=== PATIENT | female | born 1990 | race Caucasian/White ===

== ENCOUNTER 2018-06-20 04:48 | Inpatient (IN) | payer MEDICAID ==
[~2018-06-20] VITALS: Ht 152.4 cm; Wt 82.1 kg
[2018-06-20 05:15] VITALS: BP_SYST 134
[2018-06-20] MEDS ORDERED: VANCOMYCIN HCL 1,000 MG in D5W 250 ML IV ONE (05:30)
[2018-06-20] MEDS ORDERED: NACL 0.9% IV ONE (05:30)
[2018-06-20] MEDS ORDERED: AMOX-426 PO (05:40)
[2018-06-20] MEDS ORDERED: CLIN150C15 PO (05:40)
[2018-06-20 06:07] LABS: BILIRUBIN,URINE NEGATIVE (NEGATIVE); BLOOD, URINE NEGATIVE (NEGATIVE); CLARITY/URINE SL HAZY (CLEAR); COLOR,URINE YELLOW (YELLOW); GLUCOSE,URINE NEGATIVE (NEGATIVE); KETONES,URINE NEGATIVE (NEGATIVE); LEUKOCYTE ESTERASE ,URINE NEGATIVE (NEGATIVE); NITRITE, URINE NEGATIVE (NEGATIVE); PROTEIN URINE NEGATIVE (NEGATIVE); UROBILINOGEN,URINE 0.2 (0.2-1.0)
[2018-06-20] MEDS ORDERED: VANCOMYCIN HCL 1000 MG/VIAL IV ONE (06:20)
[2018-06-20 06:25] LABS: BASOPHILS # (AUTO) 0.1 K/uL (0.0-0.2); BASOPHILS % (AUTO) 0.5 % (0.0-2.0); EOSINOPHILS # (AUTO) 0.1 K/uL (0.0-0.4); EOSINOPHILS % (AUTO) 0.8 % (0.0-4.0); HEMATOCRIT 37.4 % (36-48); HEMOGLOBIN 11.6 g/dL (12.0-16.0); LYMPHOCYTES # (AUTO) 1.2 K/uL (1.0-5.5); MEAN CORPUSCULAR HEMOGLOBIN 25 pg (27-31); MEAN CORPUSCULAR HGB CONC 31 % (32-36); MEAN CORPUSCULAR VOLUME 81 fL (79.0-98.0); MONOCYTES # (AUTO) 0.8 K/uL (0.0-1.0); NEUTROPHILS # (AUTO) 8.1 K/uL (1.8-7.7); NEUTROPHILS % (AUTO) 78.7 % (40.0-70.0); PLATELET COUNT (AUTO) 386 K/uL (130-430); RED BLOOD CELL COUNT(AUTO) 4.63 MIL/uL (4.2-6.2); RED CELL DISTRIBUTION WIDTH 14.1 % (9.0-15.0); WHITE BLOOD COUNT (AUTO) 10.3 K/uL (4.8-10.8)
[2018-06-20 06:32] LABS: CALCIUM 9.3 mg/dL (8.4-11.0); CREATININE 0.92 mg/dL (0.55-1.30); POTASSIUM 3.5 mmol/L (3.5-5.1)
[2018-06-20 06:37] LABS: ALBUMIN 3.6 g/dL (3.4-4.8); TOTAL BILIRUBIN 0.2 mg/dL (0.0-1.0)
[2018-06-20 06:39] LABS: PROTHROMBIN TIME 9.6 SECS (9.5-12.5)
[2018-06-20 08:15] VITALS: BP_SYST 126
[2018-06-20 12:08] VITALS: BP_SYST 132
[2018-06-20] MEDS: VANCOMYCIN HCL 1,000 MG in NS 250 ML IV SCH (13:03)
[2018-06-20] MEDS ORDERED: ACETAMINOPHEN 325 MG TABLET PO ONE (14:45)
[2018-06-20] MEDS: ceFAZolin SODIUM 1 GM in D5W 50 ML IV SCH ×2 (14:49→21:24)
[2018-06-20 17:30] VITALS: BP_SYST 116
[2018-06-20 20:02] VITALS: BP_SYST 137
[2018-06-20] MEDS ORDERED: ACETAMINOPHEN 325 MG TABLET PO PRN (21:45)
[2018-06-20] MEDS ORDERED: HYDROcodone/ACETAMIN 5-325 MG TAB (NORCO/ VICODIN) PO PRN (21:45)
[2018-06-21] VITALS: BP_SYST 129
[2018-06-21] MEDS: VANCOMYCIN HCL 1,000 MG in NS 250 ML IV SCH ×2 (01:26→14:57)
[2018-06-21] MEDS: ceFAZolin SODIUM 1 GM in D5W 50 ML IV SCH ×2 (07:05→17:28)
[2018-06-21 07:58] VITALS: BP_SYST 103
[2018-06-21 11:24] VITALS: BP_SYST 127
[2018-06-21 16:15] VITALS: BP_SYST 127
== END 2018-06-21 19:30 | disposition home or self-care (01) | DRG 82 ==
LOC: SED 04:48 → SMU 07:15
PROVIDERS: ADMIT Internal Medicine; ATTEND Internal Medicine
DX: H00.036 Abscess of eyelid left eye, unspecified eyelid (principal); H05.012 Cellulitis of left orbit; L03.213 Periorbital cellulitis; Z86.19 Personal history of other infectious and parasitic diseases
CPT/HCPCS: 36415; 71045; 80053; 81003; 83605; 84484; 85025; 85610-TC; 85730-TC; 87040-TC; 87081; 87086; 93005; 96361; 96365; 99285; J0690; J3370; J7030; J7050; J7060

== ENCOUNTER 2018-11-13 19:20 | Emergency (ER) | payer MEDICAID ==
[~2018-11-13] VITALS: Ht 152.4 cm; Wt 81.6 kg
[2018-11-13 19:26] VITALS: BP_SYST 137
--- NOTE | 2018-11-13 19:31 | NUR ---
Patient triaged and placed in waiting room. VSS and patient appears in no acute distress at this time. Accompanied by mother, awaiting available bed, and MD notified of need for MSE.
--- NOTE | 2018-11-13 20:36 | NUR ---
Dr. Olmstead bedside for pt eval
[2018-11-13] MEDS ORDERED: NACL 0.9% 1,000 ML IV ONE (20:43)
[2018-11-13] MEDS ORDERED: VANCOMYCIN HCL 1,000 MG in NS 250 ML IV ONE (20:45)
[2018-11-13] MEDS ORDERED: cefTRIAXone 1 GM IVPB PREMIX 50 ML IV ONE (20:45)
--- NOTE | 2018-11-13 20:45 | NUR ---
Pt BIB Mother to ED C/O right buttock cellulitis associated with redness and drainage from the site. The Pt reports that she noticed that there was localized swelling on her right buttock on Sunday. She reports that her symptoms have gotten progressively worse which prompted her to come to the ED for further evaluation and treatment. Currently, she reports that her pain is a 10/10 in intensity and describes it as sharp pain. Pt states taking Excedrin with no relief. She reports that she has a hx of similar episodes. No other complaints and or injuries noted, VSS, no s/s of acute distress. Resting on gurney with rails up
[2018-11-13] MEDS ORDERED: SULFAMETHOXAZOLE/TRIMETHOPR DS 1 TABLET PO ONE (21:00)
[2018-11-13] MEDS ORDERED: IBUPROFEN 800 MG TABLET PO ONE (21:00)
[2018-11-13] MEDS ORDERED: VANCOMYCIN HCL 1000 MG/VIAL IV ONE (21:07)
[2018-11-13] MEDS ORDERED: SULFAMETHOXAZOLE/TRIMETHOPR DS 1 TABLET ONE (21:18)
[2018-11-13 21:19] LABS: BASOPHILS % (AUTO) 0.4 % (0.0-2.0); EOSINOPHILS % (AUTO) 0.3 % (0.0-4.0); HEMATOCRIT 34.5 % (36-48); HEMOGLOBIN 11.4 g/dL (12.0-16.0); LYMPHOCYTES # (AUTO) 1.2 K/uL (1.0-5.5); LYMPHOCYTES % (AUTO) 12.6 % (20.5-51.5); MEAN CORPUSCULAR HEMOGLOBIN 27 pg (27-31); MEAN CORPUSCULAR HGB CONC 33 % (32-36); MEAN CORPUSCULAR VOLUME 81 fL (79.0-98.0); MONOCYTES # (AUTO) 0.8 K/uL (0.0-1.0); MONOCYTES % (AUTO) 7.9 % (1.7-9.3); NEUTROPHILS # (AUTO) 7.7 K/uL (1.8-7.7); NEUTROPHILS % (AUTO) 78.8 % (40.0-70.0); PLATELET COUNT (AUTO) 230 K/uL (130-430); RED BLOOD CELL COUNT(AUTO) 4.29 MIL/uL (4.2-6.2); RED CELL DISTRIBUTION WIDTH 15.5 % (9.0-15.0); WHITE BLOOD COUNT (AUTO) 9.8 K/uL (4.8-10.8)
[2018-11-13 21:51] LABS: CALCIUM 9.2 mg/dL (8.4-11.0); CREATININE 0.8 mg/dL (0.55-1.30); POTASSIUM 3.9 mmol/L (3.5-5.1)
--- NOTE | 2018-11-13 22:50 | NUR ---
IV antibiotics well tolerated. VSS no s/s of acute distress. Resting on gurney with rails up
[2018-11-13 23:30] VITALS: BP_SYST 123
--- NOTE | 2018-11-13 23:30 | NUR ---
Patient given written and verbal discharge instructions and verbalizes understanding. ER MD discussed with patient the results and treatment provided. Patient in stable condition. ID arm band removed. IV catheter removed intact and dressing applied, no active bleeding. Rx of Bactrim given. Patient educated on pain management and to follow up with PMD. Pain Scale 0/10. Opportunity for questions provided and answered. Medication side effect fact sheet provided.
== END 2018-11-13 23:30 | disposition home or self-care (01) ==
LOC: SED 19:20
DX: L02.31 Cutaneous abscess of buttock (principal); F41.9 Anxiety disorder, unspecified; F32.9 Major depressive disorder, single episode, unspecified
CPT/HCPCS: 36415; 80048; 85025; 96365; 96368; 99283; J0696; J3370; J7030